=== PATIENT | male | born 1990 | race Caucasian/White ===

== ENCOUNTER 2017-11-22 20:57 | Emergency (ER) | payer SELFPAY ==
[~2017-11-22] VITALS: Ht 201.9 cm; Wt 120.0 kg
[2017-11-22] MEDS ORDERED: LIDOCAINE HCL 1% 20ML VIAL (Pyxis) INJ MC ONE (22:30)
[2017-11-22] MEDS ORDERED: LIDOCAINE HCL/PF 1% 10 MG/ML 5ML VIAL IJ NR (22:45)
[2017-11-22] MEDS ORDERED: ACETAMINOPHEN 500MG TABLET PO ONE (23:30)
[2017-11-22] MEDS ORDERED: IBUPROFEN 600MG TABLET PO ONE (23:30)
[2017-11-22 23:33] VITALS: BP 154/108
== END 2017-11-22 23:54 | disposition home or self-care (01) ==
LOC: ER 20:57
DX: K04.7 Periapical abscess without sinus (principal); K02.9 Dental caries, unspecified
CPT/HCPCS: 41800; 99283; J3490; Z7610